=== PATIENT | female | born 1955 | race Caucasian/White ===

== ENCOUNTER 2022-12-31 09:37 | Emergency (ER) | payer MEDICARE, MEDICAID | END 2022-12-31 10:56 | disposition home or self-care (01) | LOC: JD.ED 09:37 | DX: S93.402A Sprain of unspecified ligament of left ankle, initial encounter (principal); Z88.5 Allergy status to narcotic agent; X50.9XXA Other and unspecified overexertion or strenuous movements or postures, initial encounter | CPT/HCPCS: 73610-26-LT; 73610-LT; 99283 ==

== ENCOUNTER 2023-09-27 19:38 | Emergency (ER) | payer MEDICARE, OTHER ==
[2023-09-27] MEDS: Lidocaine 1% 10 ML MDV INJECT ONE (20:26)
[2023-09-27] MEDS: Amoxicillin/Clavulanate K 875-125 MG Tab PO ONE (21:00)
== END 2023-09-27 21:00 | disposition home or self-care (01) ==
LOC: JD.ED 19:38
DX: S61.254A Open bite of right ring finger without damage to nail, initial encounter (principal); Z88.5 Allergy status to narcotic agent; W54.0XXA Bitten by dog, initial encounter
CPT/HCPCS: 12001; 99283; A9270; J3490